=== PATIENT | female | born 1985 | race Hispanic/Latino ===

== ENCOUNTER 2018-06-12 08:32 | Day surgery (SDC) | payer BC ==
[2018-06-11 15:52] VITALS: BP 126/73
[2018-06-11 15:58] LABS: BASOPHILS % (AUTO) 0.3 % (0.0-5.0); EOSINOPHILS % (AUTO) 1.1 % (0.0-8.0); HEMATOCRIT 36.7 % (36-48); LYMPHOCYTES % (AUTO) 26.8 % (21.0-51.0); MEAN CORPUSCULAR HEMOGLOBIN 28.1 pg (27.0-33.0); MEAN CORPUSCULAR HGB CONC 33.2 g/dL (32.0-36.0); MEAN CORPUSCULAR VOLUME 84.7 fL (79-99); MONOCYTES % (AUTO) 5.4 % (3.0-13.0); NEUTROPHILS % (AUTO) 66.4 % (40.0-77.0); PLATELET COUNT (AUTO) 288 K/uL (130-400); RED BLOOD CELL COUNT(AUTO) 4.33 MIL/uL (4.00-5.50); RED CELL DISTRIBUTION WIDTH 13.6 % (11.0-15.5); WHITE BLOOD COUNT (AUTO) 8.7 K/uL (4.8-10.8)
[2018-06-12] VITALS (13 sets, daily range): BP systolic 92–124; BP diastolic 45–80
[~2018-06-12] VITALS: Ht 162.6 cm; Wt 101.7 kg
[~2018-06-12 08:32] MED LIST: CALDOLOR 800MG+NS 250ML 250 ML IV SCH; CEFAZOLIN 3GM /D5W 100ML 100 ML IV SCH; LACTATED RINGERS 1000ML 1,000 ML IV SCH
[2018-06-12] MEDS ORDERED: DEXAMETHASONE SOD PHOSPHATE 10MG/ML 1ML VIAL ONE (08:41)
[2018-06-12] MEDS ORDERED: SUCCINYLCHOLINE 200MG/10ML SYR ONE (08:42)
[2018-06-12] MEDS ORDERED: PROPOFOL 10 MG/ML 20ML VIAL IV ONE (08:42)
[2018-06-12] MEDS ORDERED: ROCURONIUM 10MG/1ML SYR 10 MG/ML ML ONE (08:42)
[2018-06-12] MEDS ORDERED: MIDAZOLAM HCL 1 MG/ML 2ML VIAL ONE (08:42)
[2018-06-12] MEDS ORDERED: ONDANSETRON HCL 4 MG/2 ML VIAL ONE ×2 (08:42→10:20)
[2018-06-12] MEDS ORDERED: LIDOCAINE PF 2% 5ML ABBOJECT ONE ×2 (08:42→08:44)
[2018-06-12] MEDS ORDERED: GLYCOPYRROLATE 1 MG/5 ML SYRINGE ONE (08:43)
[2018-06-12] MEDS ORDERED: FENTANYL CITRATE PF 50 MCG/1 ML 2ML VIAL ONE ×2 (08:43)
[2018-06-12] MEDS ORDERED: LIDOCAINE HCL 4% LTA SOL 4 ML VIAL ONE (08:46)
[2018-06-12] MEDS: CEFAZOLIN SODIUM 1 GM VIAL ONE ×2 (09:18→09:40)
[2018-06-12] MEDS ORDERED: PREN-66 PO (09:27)
[2018-06-12] MEDS ORDERED: MEPERIDINE-PF 25 MG/ML SYG ONE ×2 (10:16→10:31)
[2018-06-12] MEDS ORDERED: METOCLOPRAMIDE 10 MG/2 ML VIAL ONE (10:40)
== END 2018-06-12 12:00 | disposition home or self-care (01) ==
LOC: DAH 08:32
PROVIDERS: ATTEND Obstetrics & Gynecology
DX: N84.0 Polyp of corpus uteri (principal); E11.9 Type 2 diabetes mellitus without complications; I10 Essential (primary) hypertension; Z79.899 Other long term (current) drug therapy; E66.01 Morbid (severe) obesity due to excess calories
CPT/HCPCS: 36415; 58558; 84702; 85025; 86850; 86900; 86901; 88305; A4218; A4351; A4355; A4510; A4600; J0330; J0690; J1100; J1741; J2001 ×2; J2175 ×2; J2250; J2405 ×2; J2704; J2765; J3010 ×2; J3490; J7030 ×2; J7120